=== PATIENT | male | born 1965 | race Two or more races ===

== ENCOUNTER 2024-01-06 15:03 | Emergency (ER) | payer OTHER, SELFPAY ==
[2024-01-06 15:08] VITALS: BP 144/85; PULSE 73; RESP 20; TEMP 36.6; O2SAT 98; BMI 38.0
--- NOTE | 2024-01-06 18:29 | ED.GENADULT ---
HPI - General Adult General Chief complaint: General Medical Stated complaint: Med refill Time Seen by Provider: 01/06/24 18:13 Source: patient, RN notes reviewed and old records reviewed Mode of arrival: ambulatory Limitations: no limitations History of Present Illness ED Provider: Joy BONILLA narrative: 58-year-old male past medical history significant for type 2 diabetes maintained on Farxiga 10 mg daily and Vildagliptin/Metformin 50/850mg BID who presents for evaluation of a medication refill. Patient reports he is from [place] [facility] and is visiting for the next few months. He ran out of his medications that were prescribed to him in his home country He has no complaints or concerns. He is requesting a refill of his medications while he is temporarily staying in the [facility] Related Data Previous Rx's ?Medication ?Instructions ?Recorded dapagliflozin propanediol 10 mg 10 mg PO DAILY #30 tabs 01/06/24 tablet (Farxiga) metformin 850 mg tablet 850 mg PO BID #60 tabs 01/06/24 sitagliptin 50 mg tablet 50 mg PO DAILY #30 tabs 01/06/24 Allergies Allergy/AdvReac Type Severity Reaction Status Date / Time No Known Allergies Allergy Verified 01/06/24 15:10 Review of Systems Constitutional: Constitutional: Denies body ache(s), Denies chills and Denies headache(s) Eyes: Eyes: Denies blurry vision ENT: Denies vertigo, Denies dizziness and Denies headache(s) Cardiovascular: Cardiovascular: Denies chest pain and Denies dyspnea Respiratory: Respiratory: Denies cough and Denies dyspnea Gastrointestinal: Gastrointestinal: Denies abdominal pain, Denies nausea and Denies vomiting Musculoskeletal: Musculoskeletal: Denies back pain Integumentary/Breasts: Skin/Breast: Denies rash Neurologic: Denies vertigo, Denies dizziness and Denies headache(s) Psychiatric: Psychiatric: Denies anxiety PMF Social History Social History Advance Directives: No Advance Directives Information Provided: Yes Do you have a plan to hurt others: No Plan Physical Exam ED Vital Signs: Vital Signs - 24 hr 01/06/24 15:08 Temperature 97.9 F Pulse Rate 73 Respiratory Rate 20 Blood Pressure 144/85 H Pulse Oximetry 98 Oxygen Delivery Method Room Air BMI result Body Mass Index 38.0 Const General: healthy appearing, comfortable, no acute distress, alert and awake Nutritional Appearance: well nourished Orientation/consciousness: patient oriented x3 HENMT Head: Yes normocephalic and Yes atraumatic Eyes Eyelids: Yes eyelids normal Conjunctivae: conjunctivae normal Sclerae: sclerae normal Corneas: corneas normal Pupils: Equal, round and reactive pupils present EOM: EOMs intact bilaterally Neck Neck: Yes full ROM Resp Effort & Inspection: normal respiratory effort, able to speak in complete sentences and not labored Cardio Rate: regular rate Rhythm: regular rhythm Skin General skin exam: no rashes or lesions noted and elasticity normal Neuro General: patient oriented x3 Cranial nerves: Yes Equal, round and reactive pupils present and Yes Bilaterally intact EOM present Cognition (Neuro): normal cognition Extrem Other: Moving all extremities well without any obvious deformities Medical Decision Making Medical Decision Making MDM Narrative: 58-year-old male with past medical history significant for type 2 diabetes. The patient is seeking refills for Farxiga and metformin with Vildagliptin. Refilling a short-term prescription for this patient until he can get in with a primary provider. Unfortunately Vildagliptan is not commercially available in the [place] and the closest alternative is Sitigliptin 50 mg daily. I discussed this change with the patient. He is comfortable with this change and will follow up with a primary doctor when able Differential Diagnosis Differential Diagnoses: The differential diagnosis associated with the presentation includes Type 2 diabetes Medication refill Medication noncompliance [id number] diabetes Attestation Attending Attestation: I was available for consultation however the patient was not discussed with me. I agree with the caring provider's MDM. Favio Roblero MD Discharge Plan Discharge Clinical Impression: Diabetes, Encounter for medication refill Patient Disposition: Home, Self-Care Instructions: Type 2 Diabetes Management for Adults (ED) Additional Instructions: Follow up with the primary doctor when able Take your medications as prescribed Return for new or worsening symptoms Prescriptions: New dapagliflozin propanediol [Farxiga] 10 mg tablet 10 mg PO DAILY Qty: 30 0RF sitagliptin 50 mg tablet 50 mg PO DAILY Qty: 30 0RF metformin 850 mg tablet 850 mg PO BID Qty: 60 0RF Interventions: ED Discharge Assessment Last Done: 01/06/24 18:39 Discharge Date/Time: 01/06/24 18:40 Print Language: Occitan
[2024-01-06 18:39] VITALS: BP 144/85; PULSE 73; RESP 20; TEMP 36.6; O2SAT 98
== END 2024-01-06 18:40 | disposition home or self-care (01) ==
PROVIDERS: Emergency Provider Emergency Medicine
DX: E11.9 Type 2 diabetes mellitus without complications (principal); Z76.0 Encounter for issue of repeat prescription; Z79.84 Long term (current) use of oral hypoglycemic drugs; Z79.899 Other long term (current) drug therapy
CPT/HCPCS: 99282